=== PATIENT | female | born 1960 | race Caucasian/White ===

== ENCOUNTER 2016-07-19 10:41 | Day surgery (SDC) | payer MEDICARE, MEDICAID ==
[~2016-07-19] VITALS: Ht 154.9 cm; Wt 52.0 kg
[~2016-07-19 10:41] MED LIST: ALBU2.5V4 INHALATION; ALBU8.5H2 INHALATION; BUDE10.2 INHALATION; CYAN250010 IM; DICY10CA13 PO; FLUO20TA28 PO; HYDR-3740 PO; LEVO175T5 PO; LINA290C PO; LOSA1TAB69 PO; OLAN2.5T20 PO; ONDA-53 PO; OXYB15TA PO; PANT40TA3 PO; PROC10TA PO; PROM25TA14 PO; PROZ20 PO; RANI150C4 PO; SUCR1TAB PO; TIOT18CA3 IH; ZLP10T PO
[2016-07-19] MEDS ORDERED: fentaNYL-PF 50 mCg/mL 2 mL Inj ONE (10:42)
[2016-07-19] MEDS ORDERED: Propofol 10,000 mCg/mL 20 mL Inj ONE (10:42)
[2016-07-19] MEDS ORDERED: Lidocaine PF 1% 30 mL Inj ONE (10:42)
[2016-07-19 10:55] VITALS: BP 107/75; PULSE 58; RESP 16; O2SAT 94
[2016-07-19] MEDS ORDERED: Lactated Ringer's 1,000 ML IV ONE (11:23)
[2016-07-19] MEDS ORDERED: Lactated Ringer's 1,000 ML IV SCH (11:23)
--- NOTE | 2016-07-19 11:23 | PCM.HPANE ---
Patient Data Date of Service: July 19, 2016 Surgeon Admitting Provider: Attending Provider:Nisa Marin MD Primary Care Physician:Kylie Feldman PA-C Other Provider:Arnold Johnson Anesthesia Reason for Visit Neuroendocrine Tumor Ht/WT & BMI Height (Feet): 5 Height (Inches): 1 Weight (Kilograms): 52 Body Mass Index 21.00 Allergies Coded Allergies: No Known Allergies (Unverified , 07/18/16) Past Anesthesia History Anesthesia History: Denies:: Abnormal Airway, Anesthesia Reactions, Difficult Intubation, Fam Anesthesia Reaction, Fam Malignant Hypertherm, Malignant Hyperthermia Diabetes History Hx Diabetes?: No MRSA MRSA: Yes (HX SKIN MRSA 2015) Medications Home Meds Incl Beta Paige: No Reported Medications Cyanocobalamin (Vitamin B-12) (Vitamin B12)2,500 Mcg Tablet1,000 Mcg IM 07/18/16 Budesonide/Formoterol 80-4.5 mcg Inh (Symbicort 80-4.5 mcg Inh)120 Puff Inhaler1 Puff INHALATION BID #1 INHALER Ref 0 07/18/16 Sucralfate 1 Gm Tablet1 Gm PO QID 30 Days Ref 0 07/18/16 Tiotropium Hammond (Spiriva)18 Mcg Cap.w.dev18 Mcg IH DAILY #1 PKG Ref 0 07/18/16 Ranitidine 150 Mg Nfpharu073 Mg PO BID Ref 0 07/18/16 Fluoxetine (Prozac)20 Mg Joqwwhs08 Mg PO DAILY Ref 0 07/18/16 Prochlorperazine Maleate (Prochlorperazine)10 Mg Dhpqdk58 Mg PO Q8 PRN For Nausea/Vomiting Ref 0 07/18/16 Albuterol HFA (Proair HFA)8.5 Gm Hfa.aer.ad2 Puffs INHALATION Q4H #1 INHALER 07/18/[address] 40 Mg Tablet.dr40 Mg PO DAILY Ref 0 07/18/16 Oxybutynin Chloride ER 15 Mg Tab.er.2415 Mg PO DAILY Ref 0 07/18/16 Ondansetron 4 Mg Tablet4 Mg PO 07/18/16 Olanzapine 2.5 Mg Tablet2.5 Mg PO q 8hrs Ref 0 07/18/16 Losartan/HCTZ 50-12.5 mg 1 Each Tablet1 Tablet PO DAILY Ref 0 07/18/16 Linaclotide (Linzess)290 Mcg Qnnthvd199 Mcg PO 07/18/16 Levothyroxine 175 Mcg Bhudmm972 Mcg PO DAILY Ref 0 07/18/16 Fluoxetine 20 Mg Pnlcdz75 Mg PO DAILY Ref 0 07/18/16 Dicyclomine 10 Mg Nwrlfvj70 Mg PO QID PRN For GI Cramps Ref 0 07/18/16 Albuterol Neb Soln 2.5 Mg/3 Ml Vial.neb2.5 Mg INHALATION Q4H PRN breathing Ref 0 07/18/16 Discontinued Reported Medications Promethazine 25 Mg Pfegcn22 Mg PO Q6H PRN unknown Ref 0 07/18/16 Hydrocodone-Acetaminophen 10-325 mg 1 Each Tablet1 Tablet PO Q6H PRN For Pain Ref 0 07/18/16 Zolpidem (Ambien)10 Mg Dsnuip08 Mg PO HS PRN For Insomnia Ref 0 07/18/16 Cyanocobalamin (Vitamin B12)500 Mcg Tablet1,000 Mcg PO DAILY 07/18/16 History History of ENT Problems?: No HEENT History: Positive for:: Dysphagia Denies:: Abnormal Airway Difficult Intubation Hearing Problem Denture Type: None Teeth Condition: Broken Teeth Other HEENT Pertinent History: LOOSE TOOTH ON BOTTOM RIGHT Hx of Heart Problems?: Yes Cardiovascular History: Positive for:: Hypertension Denies:: AICD Atrial Fibrillation Chest Pain Pacemaker Valvular Heart Disease Hx of Respiratory Problem?: Yes Respiratory History: Positive for:: COPD Cough Denies:: Hemoptysis Pneumonia Tuberculosis Hx Neurologic Problems?: No (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) Hx of GI Problems?: Yes Other History/Comment neuroendocrine tumor Hx of Problems?: No HX of Peritoneal Dialysis: No Female Hx: Positive for:: Currently Hx Musculoskeletal Problems?: Yes Musculoskeletal History: Positive for:: Fibromyalgia Denies:: Joint Replacement Hx of Psycho/Social Problems?: Yes Psycho Social History: Positive for:: Anxiety Hx Depression Hx Surgeries?: Yes (HYSTERECTOMY, GALLBLADDER, TONSILS) Hx Any Other Health Problems?: Yes Hx Diabetes: No Hx Alcohol Use: No Smoking Status: Former Smoker (quit 2014) Have You Smoked inLast 12 mo: No Stop/Bang Treated for Sleep Apnea?: No Do You Have a CPAP Machine?: No S-Snoring: Do You Snore Loudly: No T-Tired: feel tired, fatigued: Yes O-Obsered: Observed not breath: No P-Blood Pressure: treated: Yes B- Body Mass Index > 35 kg/m2: No N- Neck Large Circumference: No G- Gender Male: No EDU Risk Assessment: Low Risk, <3 Yes Risk Assessment Category Category 1A: Patient has history of documented sleep apnea, and HAS NOT received any narcotic, sedative or anesthesia administration during this stay. Category 1B: Patient has history of documented sleep apnea, and HAS received any narcotic , sedative or anesthesia administration during this stay Category 2: Patient has SUSPECTED Obstructive Sleep Apnea, and HAS received any narcotic , sedative or anesthesia administration during this stay. Category 3: Patient has SUSPECTED Obstructive Sleep Apnea and HAS NOT received narcotic, sedative or anesthesia administration during this stay. Category 4: Outpatient in Procedural Areas with known sleep apnea or who screen positive for High Risk via the STOP/BANG questionnaire. Exam Exam Vital Signs Vital Signs Date Time Temp Pulse Resp B/P Pulse Ox O2 Delivery O2 Flow Rate FiO2 07/19/16 10:55 36.5 58 16 107/75 94 Room Air General Appearance: Alert, Oriented X3, Cooperative HEENT/AIRWAY: MP 2, Neck Movement (Full), Mouth Opening (Wide) Lungs: Clear to Auscultation, Normal Air Movement Heart: Regular Rate/Rhythm, Normal S1, Normal S2 Plan Impression Patient chart reviewed, patient interviewed and anesthestic plan with risks, benefits, and alternatives discussed, and informed consent obtained. NPO per Anesth. Guidelines: Yes ASA Physical Status: ASA3 Severe Disease Anesthetic Plan: MAC Bene/Risks/Altern/Consents: Yes HP Complete Prior to Induction: Yes Saul Oglesby MD July 19, 2016 11:14
[2016-07-19] MEDS ORDERED: Ondansetron 2 mg/mL 2 mL Inj IVPUSH PRN (11:25)
[2016-07-19] MEDS ORDERED: MetoCLOpramide 5 mg/mL 2 mL Inj IVPUSH PRN (11:25)
[2016-07-19 12:13] VITALS: BP 118/84; PULSE 69; RESP 16; O2SAT 94
[2016-07-19 12:22] VITALS: BP 102/73; PULSE 68; RESP 16; O2SAT 95
--- NOTE | 2016-07-19 12:31 | PCM.ANEP1 ---
Post Anesthesia PACU Phase 1 Assessment Date of Service: July 19, 2016 Vital Signs Vital Signs Date Time Temp Pulse Resp B/P Pulse Ox O2 Delivery O2 Flow Rate FiO2 07/19/16 12:22 68 16 102/73 95 Room Air 07/19/16 12:13 36.3 69 16 118/84 94 Room Air 07/19/16 10:55 36.5 58 16 107/75 94 Room Air Anesthetic Administered: MAC Level of Alertness: Awake, talking CARLSON's with Equal Strength: No Pain: Yes Nausea or Vomiting: No CV Function & Hydration Stable: No Airway Device: Oxygen Delivery: Room Air Lungs: Normal Air Movement PACU Phase 2 Assessment Complications: Yes (loose tooth out from biting on bite block. Pt aware this was possible, happy it is out) Follow up Care: No Patient Instructions Provided: N/A Saul Oglesby MD July 19, 2016 12:31
[2016-07-19 12:35] VITALS: BP 132/71; PULSE 65; RESP 16; O2SAT 96
--- NOTE | 2016-07-19 13:01 | ENDO ---
[address] [address] ENDOSCOPY PROCEDURE PATIENT: MOMO RASMUSSEN : 1960 MR#: [id number] ADMIT: 07/19/2016 JOB ID: [id number] DATE: 07/19/2016 PROCEDURE: Esophagogastroduodenoscopy, EUS. INDICATION: Dysphagia and suspected neuroendocrine tumor in a patient who has an elevated gastrin level. Please see Dr. Joshua Oglesby's anesthesia report for details regarding ASA classification, Mallampati score and medications. INSTRUMENT USED: GIF H 180 J as well as [id number] linear echoendoscope. PROCEDURE DETAILS: After informed consent was obtained, the patient was brought into the GI suite, where she was placed on oxygen via nasal cannula and monitored with continuous pulse oximeter, telemetry and blood pressure monitoring. A time-out was performed. Then, she was placed in the left lateral decubitus position and a bite block was placed. The standard EGD scope was inserted through the bite block and advanced without difficulty to the second portion of the duodenum. FINDINGS: 1. Normal appearing duodenal bulb, first and second portion. 2. Normal-appearing pylorus, antrum and gastric body. 3. Retroflexed views in the gastric body revealed a normal-appearing cardia and fundus. 4. Normal appearing GE junction at approximately 37 cm. 5. Normal appearing esophagus. The linear echo endoscope was then introduced through the bite block without difficulty to the second portion of duodenum. Linear echo endoscopic findings demonstrated the followin. The pancreatic duct appeared to be normal in course and caliber. 2. The pancreatic parenchyma appeared to be slightly hyperechoic suggestive of fatty pancreas but no mass lesions were seen. 3. The bile duct was identified and appeared to be normal in course and caliber and measured approximately 3.9 mm. 4. Flow was seen in the portal vein, splenic vein and splenic artery. 5. Celiac axis was identified and appeared unremarkable. 6. Examined portions of the left lobe of the liver were unremarkable. 7. Left adrenal gland was identified and appeared unremarkable. IMPRESSIONS: Hyperechoic appearing liver and pancreas suggestive of fatty liver and pancreas but otherwise normal examination. RECOMMENDATIONS: Octreotide scan and followup with GI clinic after octreotide scan and followup in Endocrinology Clinic after octreotide scan. COMPLICATIONS: None. ESTIMATED BLOOD LOSS: 0.
== END 2016-07-19 23:59 | disposition home or self-care (01) ==
LOC: END 10:41
PROVIDERS: ATTEND Internal Medicine Gastroenterology
DX: K76.0 Fatty (change of) liver, not elsewhere classified (principal); D3A.8 Other benign neuroendocrine tumors; R13.10 Dysphagia, unspecified; K59.00 Constipation, unspecified; I10 Essential (primary) hypertension; R12 Heartburn; M32.9 Systemic lupus erythematosus, unspecified; E06.3 Autoimmune thyroiditis; M79.7 Fibromyalgia; K22.70 Barrett's esophagus without dysplasia; F41.8 Other specified anxiety disorders; G45.1 Carotid artery syndrome (hemispheric); J44.9 Chronic obstructive pulmonary disease, unspecified; Z87.891 Personal history of nicotine dependence; Z86.14 Personal history of Methicillin resistant Staphylococcus aureus infection; Z90.710 Acquired absence of both cervix and uterus
CPT/HCPCS: 43237; J3010; J7120